=== PATIENT | male | born 1970 | race Hispanic/Latino ===

== ENCOUNTER 2018-10-13 07:11 | Day surgery (SDC) | payer BC ==
[2018-10-13] MEDS ORDERED: Ringers Lactate 1,000 ML IV ONE (07:46)
[2018-10-13] MEDS ORDERED: LIDOCAINE 1% MPF 30 ML VIAL ONE (08:19)
[2018-10-13] MEDS ORDERED: PROPOFOL 200 MG/20 ML VIAL IV ONE (08:19)
--- NOTE | 2018-10-13 08:34 | ENDO RPT ---
[address], [address] EGD PROCEDURE REPORT EXAM DATE: 10/13/2018 PATIENT NAME: Dandy Chang MR#: [id number] BIRTHDATE: 1970 ATTENDING: Bernardino Morton DR STATUS: outpatient WALL MAN: Omar Parkinson and Reena Bocanegra RN INDICATIONS: The patient is a 47 yr old Male here for an EGD due to abdominal pain and mid epigastric abdominal pain PROCEDURE PERFORMED: EGD with biopsy for H. pylori MEDICATIONS: Per Anesthesia. TOPICAL ANESTHETIC: none CONSENT: The patient understands the risks and benefits of the procedure and understands that these risks include, but are not limited to: sedation, allergic reaction, infection, perforation and/or bleeding. Alternative means of evaluation and treatment include, among others: physical exam, x-rays, and/or surgical intervention. The patient elects to proceed with this endoscopic procedure. DESCRIPTION OF PROCEDURE: During intra-op preparation period all mechanical medical equipment was checked for proper function. Hand hygiene and appropriate measures for infection prevention was taken. Procedure, possible complications, and alternatives including but not limited to the possibility of bleeding, perforation, tear, infection, sepsis, need for surgery, need for blood transfusion, and anesthesia related complications were explained to the patient. After the risks, benefits and alternatives of the procedure were thoroughly explained, Informed consent was verified, confirmed and timeout was successfully executed by the treatment team. The patient was placed in the left lateral position. The patient was anesthetized with topical anesthesia. Through the anesthetized oropharyngeal area, the scope was passed without any difficulty. The [id number] ([id number]) endoscope was introduced through the mouth and advanced to the second portion of the duodenum. Retroflexed views revealed a small hiatal hernia. The gastroscope was then slowly withdrawn and removed. Duodenitis was found in the bulb and descending duodenum. A biopsy for H. pylori was taken. Mild gastritis was found at the pylorus. A biopsy for H. pylori was taken. ADVERSE EVENTS: There were no complications. IMPRESSIONS: 1. Duodenitis was found in the bulb and descending duodenum 2. Mild gastritis was found at the pylorus RECOMMENDATIONS: 1. acid suppression therapy 2. anti-reflux regimen 3. await biopsy results 4. follow-up: office 2 week(s) 5. avoid NSAIDS 6. follow-up of helicobacter pylori status, treat if indicated REPEAT EXAM: Bernardino Morton DR eSigned: Bernardino Morton DR 10/13/2018 8:26 AM cc: CPT CODES: ICD9 CODES: PATIENT NAME: Dandy Chang MR#: [id number]
== END 2018-10-13 09:03 | disposition home or self-care (01) ==
LOC: OR 07:11
PROVIDERS: ATTEND Surgery
PROC: 0DB78ZX Excision of Stomach, Pylorus, Via Natural or Artificial Opening Endoscopic, Diagnostic (ICD-10-PCS; 2018-10-13)
PROC: 0DB98ZX Excision of Duodenum, Via Natural or Artificial Opening Endoscopic, Diagnostic (ICD-10-PCS; principal; 2018-10-13 09:15)
DX: K29.50 Unspecified chronic gastritis without bleeding (principal); B96.81 Helicobacter pylori [H. pylori] as the cause of diseases classified elsewhere; K29.80 Duodenitis without bleeding; K21.9 Gastro-esophageal reflux disease without esophagitis; Z88.0 Allergy status to penicillin; Z83.3 Family history of diabetes mellitus; Z82.49 Family history of ischemic heart disease and other diseases of the circulatory system
CPT/HCPCS: 88305; 88312; J2704

== ENCOUNTER 2018-12-27 07:16 | Day surgery (SDC) | payer BC ==
--- OUTSIDE RECORDS SUMMARY | 2018-12-27 07:30 | XMS REPORT ---
:1970 Author Organization [employer] Care Team Providers Name Role Phone Bernardino Morton Provider Role Unavailable Allergies, Adverse Reactions, Alerts Substance Reaction Event Type Amoxicillin rash Drug Allergy Problems Problem Type Condition Code Onset Dates Condition Status Assessment Gastritis, unspecified, without K29.70 Active bleeding Assessment Helicobacter pylori [H. pylori] as B96.81 Active the cause of diseases classified elsewhere Assessment Duodenitis without bleeding K29.80 Active Problem Duodenitis without bleeding K29.80 Active Problem Umbilical hernia without obstruction K42.9 Active or gangrene Problem Gastritis, unspecified, without K29.70 Active bleeding Assessment H. pylori infection A04.8 Active Problem GERD without esophagitis K21.9 Active Problem Hyperglycemia R73.9 Active Medications Medication Code Code Instructions Start End Status Dosage System Date Date Omeprazole ND 82659314087 40 MG Orally Oct 13, Active 1 capsule Once a day 2017 Clarithromycin ND 18714324571 500 MG Orally Nov 21, Dec 05, Active 1 tablet one time daily 2018 2018 Amoxicillin NDC 29399883546 500 MG Orally Nov 21, Dec 05, Active 2 tablets twice daily 2018 2018 Omeprazole NDC 38092025040 20 MG Orally Oct 18, Active 1 capsule twice a day 2018 [facility] Omeprazole ND 30394361850 20 MG Orally Nov 21, Active 1 tablet twice a day 2018 Pantoprazole ND 66340637872 20 MG Orally Sep 14, Active 1 tablet Sodium Once a day 2017 Results No Known Results Summary Purpose [employer] Submission
[2018-12-27] MEDS ORDERED: Ringers Lactate 1,000 ML IV ONE (07:58)
[2018-12-27] MEDS ORDERED: PROPOFOL 200 MG/20 ML VIAL IV ONE (08:36)
[2018-12-27] MEDS ORDERED: LIDOCAINE 1% MPF 5 ML VIAL ONE (08:36)
--- NOTE | 2018-12-27 08:57 | ENDO RPT ---
[address], [address] COLONOSCOPY PROCEDURE REPORT EXAM DATE: 12/27/2018 PATIENT NAME: Dandy Chang MR #: [id number] BIRTHDATE: 1970 ATTENDING: Bernardino Morton DR STATUS: outpatient MAINTENANCE SPECIALIST: Edel Hinson RN, Kym Parkinson, and Omar Parkinson INDICATIONS: The patient is a 48 yr old Male here for a colonoscopy due to colon cancer screening PROCEDURE PERFORMED: Colonoscopy with biopsy MEDICATIONS: Per Anesthesia. ESTIMATED BLOOD LOSS: None CONSENT: The patient understands the risks and benefits of the procedure and understands that these risks include, but are not limited to: sedation, allergic reaction, infection, perforation and/or bleeding. Alternative means of evaluation and treatment include, among others: physical exam, x-rays, and/or surgical intervention. The patient elects to proceed with this endoscopic procedure. DESCRIPTION OF PROCEDURE: During intra-op preparation period all mechanical medical equipment was checked for proper function. Hand hygiene and appropriate measures for infection prevention was taken. Procedure, possible complications, alternatives including, but not limited to possibility of bleeding, perforation, tear, infection, sepsis, need for surgery, need for blood transfusion, were explained to the patient. After the risks, benefits and alternatives of the procedure were thoroughly explained, Informed consent was verified, confirmed and timeout was successfully executed by the treatment team. The patient was placed in the left lateral position. A digital rectal exam was performed and revealed a nodule prostate. After appropriate level of anesthesia, the scope was passed. The [id number] ([id number] endoscope was introduced through the anus and advanced to the cecum, which was identified by both the appendix and ileocecal valve. The quality of the prep was fair. The instrument was then slowly withdrawn as the colon was fully examined. Scope withdrawal time was 9 minutes. COLON FINDINGS: A medium sized patch of atrophic abnormal mucosa was found at the hepatic flexure. The mucosa was atrophic and nodular. Multiple biopsies of the area were performed using cold forceps. Small internal hemorrhoids were found. Retroflexed views revealed no abnormalities. The scope was then completely withdrawn from the patient and the procedure terminated. ADVERSE EVENTS: There were no complications. IMPRESSIONS: 1. Medium sized abnormal mucosa was found at the hepatic flexure; The mucosa was atrophic and nodular; multiple biopsies of the area were performed using cold forceps 2. Small internal hemorrhoids RECOMMENDATIONS: 1. follow-up: office 2 week(s) 2. avoid NSAIDS for 2 weeks 3. await biopsy results 4. fiber rich diet 5. hemorrhoidal hygiene 6. yearly hemoccult starting in 4 years RECALL: Return in 5 year(s) for Colonoscopy, pending biopsy results. Pending Biopsy Bernardino Morton DR eSigned: Bernardino Morton DR 12/27/2018 8:57 AM cc: CPT CODES: ICD9 CODES: PATIENT NAME: Dandy Chang MR#: [id number]
== END 2018-12-27 10:15 | disposition home or self-care (01) ==
LOC: OR 07:16
PROVIDERS: ATTEND Surgery
PROC: 0DBL8ZX Excision of Transverse Colon, Via Natural or Artificial Opening Endoscopic, Diagnostic (ICD-10-PCS; principal; 2018-12-27 08:30)
DX: Z12.11 Encounter for screening for malignant neoplasm of colon (principal); K63.89 Other specified diseases of intestine; K64.8 Other hemorrhoids; N40.2 Nodular prostate without lower urinary tract symptoms; K21.9 Gastro-esophageal reflux disease without esophagitis; Z79.899 Other long term (current) drug therapy
CPT/HCPCS: 88305; J2704